=== PATIENT | female | born 1960 | race African-American/Black ===

== ENCOUNTER → 2017-07-06 | Outpatient (CLI) | payer BC, OTHER ==
[~2017-07-06] MED LIST: ASPIRIN EC325 MG PO; LISINOPRIL10 MG PO; NAPROSYN500 MG PO; NORFLEX100 MG PO; TOLTERODINE TART4 MG PO; VENTOLIN HFA 1818 GM INH
== END ==
LOC: RAD 06-29 15:40
DX: Z12.31 Encounter for screening mammogram for malignant neoplasm of breast (principal)